=== PATIENT | male | born 1975 | race Caucasian/White ===

== ENCOUNTER → 2019-04-09 12:20 | Outpatient (CLI) | payer OTHER, SELFPAY ==
--- NOTE | 2019-04-09 13:11 | DI.MRI.S_ITS ---
PROCEDURE: MR KNEE RT WO CON INDICATIONS: Unspecified internal derangement of right knee TECHNIQUE: Noncontrast sagittal PD fast spin echo and T2 fast spin echo with fat saturation, sagittal 3-D FLASH with fat saturation; coronal T1 spin echo and PD fast spin echo with fat saturation, and axial PD fast spin echo with fat saturation through the knee. COMPARISON: None. FINDINGS: Image quality: Excellent. Menisci: Focal area of T2 hyperintense signal is seen involving articular surface of posterior horn medial meniscus suggestive of focal oblique tear in this area. There is no evidence of focal lateral meniscal tear. The meniscal root ligaments appear intact. Cruciate ligaments: The anterior and posterior cruciate ligaments appear intact. Medial structures: The medial collateral ligament appears intact. The posterior oblique ligament, semimembranosus tendon insertions, oblique popliteal ligament, and meniscocapsular junction appear intact. Visualized portions of the pes anserinus tendons appear normal. No abnormal bursal fluid. Lateral structures: The lateral collateral ligament, long and short heads of the biceps femoris tendon appear intact. The popliteus tendon appears normal; the popliteofibular ligament appears intact. The posterosuperior and anteroinferior popliteomeniscal fascicles appear intact. The arcuate and fabellofibular ligaments appear intact, on either side of the lateral inferior geniculate artery. Iliotibial band appears normal. Anterior structures: The quadriceps and patellar tendons appear intact. Patellar alignment is normal. No femoral trochlear dysplasia or ventral trochlear prominence. No edema in the infrapatellar fat pad. Bones and cartilage: No bone marrow contusions or fractures. The cartilage of the medial and lateral femorotibial compartments appears normal in thickness. 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 Underlying 3 mm osteochondral lesion is likely present in posterior patella. Joint space: There is small amount of joint fluid. No gross intra-articular loose body. No Duran's cyst. Normal appearing synovial plicae are incidentally noted. IMPRESSION: 1. Finding is suspicious for subtle focal oblique tear involving posterior horn of medial meniscus extending to the inferior articulating surface. No evidence of focal lateral meniscal tear. 2. Cruciate ligaments are intact. 3. Chondromalacia and suggestion of underlying tiny 3 mm osteochondral lesion involving medial facet and apex of the patella. Dictated by: Ignacio Solo M.D. on 04/09/2019 at 14:57 Approved by: Ignacio Solo M.D. on 04/09/2019 at 15:07
== END ==
PROVIDERS: PCP Family Medicine; Visit Provider Family Medicine
DX: M23.91 Unspecified internal derangement of right knee (principal); M22.41 Chondromalacia patellae, right knee
CPT/HCPCS: 73721

== ENCOUNTER → 2020-09-01 11:51 | Outpatient (CLI) | payer OTHER, SELFPAY ==
[2020-09-01 21:09] LABS: COVID19 - ORCAS (NP or Nasal) Negative (Negative)
== END ==
PROVIDERS: PCP Family Medicine; Visit Provider Physician Assistant Medical
DX: Z20.822 Contact with and (suspected) exposure to COVID-19 (principal)
CPT/HCPCS: U0003

== ENCOUNTER 2023-08-28 18:48 | Emergency (ER) | payer OTHER, SELFPAY ==
[2023-08-28 18:56] VITALS: BP 162/99; PULSE 78; RESP 18; TEMP 36.6; O2SAT 98; BMI 22.2
--- NOTE | 2023-08-28 19:00 | DI.RAD.S_ITS ---
PROCEDURE: XR FINGER LT MIN 2V INDICATIONS: laceration TECHNIQUE: PA hand, 2 views of the index finger acquired. COMPARISON: [facility], CR, FINGER RT, 04/23/2015, 15:34. [facility], CR, FINGER RT, 02/11/2015, 14:55. FINDINGS: Bones: No acute fractures or dislocations. No suspicious bony lesions. Soft tissues: No suspicious soft tissue calcifications. Soft tissue edema and skin irregularity are seen in the distal index finger. No radiopaque foreign body. IMPRESSION: Laceration at the distal index finger with associated soft tissue swelling. No acute osseous abnormality. No radiopaque foreign body Approved by: Brayden Maza M.D. on 08/28/2023 at 20:33
--- NOTE | 2023-08-28 19:24 | ED_ITS ---
HPI - Wound/Laceration General Chief Complaint: Wound/Laceration Stated Complaint: took chunk out of finger Time Seen by Provider: 08/28/23 19:00 Source: patient Mode of arrival: Ambulatory History of Present Illness HPI narrative: 48-year-old male presents for left index finger injury. Patient was working with a heavy tool for carpentry that accidentally fell on his index finger. He went to the walk-in clinic who referred him to the ER for evaluation. Patient states that he was up-to-date on his tetanus vaccinations. Reports significant pain in his index finger. Related Data Home Medications Medication Instructions Recorded Confirmed No Known Home Medications 08/28/23 08/28/23 Allergies Allergy/AdvReac Type Severity Reaction Status Date / Time Penicillins Allergy Unknown Verified 08/28/23 18:59 amoxicillin AdvReac Mild NAUSEA AND Verified 08/28/23 18:59 VOMITING: GI PAIN/DIARRHEA Review of Systems Review of Systems Narrative: See HPI Patient History Medical History Laceration of eyebrow, right Acute bronchiolitis, unspecified Social History Smoking Status: Smoker, status unknown Smoking Status: Smoker, status unknown alcohol intake frequency: 0-2 drinks per day Substance Use Type: does not use Exam Initial Vital Signs Initial Vital Signs: Vital Signs Temperature 97.8 F 08/28/23 18:56 Pulse Rate 78 08/28/23 18:56 Respiratory Rate 18 08/28/23 18:56 Blood Pressure 162/99 H 08/28/23 18:56 Pulse Oximetry 98 08/28/23 18:56 Oxygen Delivery Method Room Air 08/28/23 18:56 Const: Awake, alert, uncomfortable, in pain MSK: Bleeding L index finger. Full ROM, capillary refill <2 seconds Skin: Warm, Dry, 2 x 1 cm laceration/absent strip of skin left index finger at DIP joint Neuro: AO x3, CN II-XII grossly intact, moves all extremities Procedures Nerve Block Nerve Block 1: Time out performed: Yes Local Anesthetic: lidocaine 1% Amount of anesthesia used (mL): 4 Side: left Nerve Blocks: digital Procedure Successful: Yes Patient Tolerated Procedure: Well and No complications Complications: none Course Orders Ordered: Discontinued Medications Hydrocodone Bitart/Acetaminophen (Hydrocodone/Acet 5/325 Prepack) 1 bottle MISC DIRECTED ONE Stop: 08/28/23 21:58 Last Admin: 08/28/23 22:04 Dose: 1 bottle Documented By: PHI Diphtheria/Tetanus/Acell Pertussis (Tet,Diph,Pertuss(Acell),Vac/Pf 0.5 Ml Syringe) 0.5 ml IM .ONCE ONE Stop: 08/28/23 19:18 Last Admin: 08/28/23 19:58 Dose: Not Given Documented By: LEONILA Lidocaine/Epinephrine (Lidocaine 2% W/Epi Inj 10 Ml Vial) 10 ml INJ INTRA-OP ONE Stop: 08/28/23 21:10 Last Admin: 08/28/23 21:28 Dose: 10 ml Documented By: PHI Oxycodone/Acetaminophen (Oxycodone/Acetaminophen 5/325 Tablet) 1 tab PO NOW ONE Stop: 08/28/23 20:45 Last Admin: 08/28/23 20:47 Dose: 1 tab Documented By: PHI Vital Signs Vital signs: Vital Signs - 8 hr 08/28/23 18:56 Temperature 97.8 F Pulse Rate 78 Respiratory Rate 18 Blood Pressure 162/99 H Pulse Oximetry 98 Oxygen Delivery Method Room Air MDM - Wound/Laceration Differential Diagnosis Differential diagnosis: Likely laceration, abscess and abrasion Imaging Data Extremity x-ray #1: Radiologist's Impression: PROCEDURE: XR FINGER LT MIN 2V INDICATIONS: laceration TECHNIQUE: PA hand, 2 views of the index finger acquired. [facility] 15[facility]34. [facility], CR, FINGER RT, 02/11/2015, 14:55. FINDINGS: Bones: No acute fractures or dislocations. No suspicious bony lesions. Soft tissues: No suspicious soft tissue calcifications. Soft tissue edema and skin irregularity are seen in the distal index finger. No radiopaque foreign body. IMPRESSION: Laceration at the distal index finger with associated soft tissue swelling. No acute osseous abnormality. No radiopaque foreign body Approved by: Brayden Maza M.D. on 08/28/2023 at 20:33 MDM Narrative Medical decision making narrative: Accidental finger injury. Based on the location and width of the laceration over distal joint crease the wound is a poor candidate for sutures, as closure of the wound with leave the index finger in a flexed state. Digital block was performed with improvement in pain. Wound was copiously irrigated with saline. Patient is up-to-date on his tetanus shot. Hemostasis achieved by placing gauze soaked in lidocaine with epinephrine to the laceration bed. Afterwards xeroform gauze applied and finger splinted in extension. A prepack of pain medication sent with the patient for pain control overnight. Infection precautions discussed with the patient at bedside prior to departure. Discharge Plan Departure Patient Disposition: Home Clinical Impression: Accidental injury due to hand tool Instructions: DI for Minor Laceration Activity Restrictions/Additional Instructions: Based on the location of the cut sutures were deferred so that your finger does not heal in a flexed position. Change your dressing daily. Keep the wound clean and dry. If you notice redness, drainage, excessive swelling please return for evaluation. Elevating your hand above heart level we will help to decrease swelling. You may also take 400 mg of Tylenol and 1000 mg of ibuprofen every 6 hours for pain. Please do not take anymore than 4000 mg of Tylenol daily. Prescriptions: No Action No Known Home Medications Referrals: Mary Cabrera PA-C [Primary Care Provider] - Stand Alone Forms: Patient Portal/API, Work Release Note
[2023-08-28] MEDS: OXYCODONE/ACETAMINOPHEN 5/325 TABLET 1 TAB PO (20:47)
[2023-08-28] MEDS: LIDOCAINE 2% W/EPI INJ 10 ML VIAL INJ (21:28)
[2023-08-28] MEDS: HYDROCODONE/ACET 5/325 PREPACK 1 BOTTLE MISC (22:04)
--- NOTE | 2023-08-28 22:05 | PC.NURSE ---
pt's hand soaked in NS then gauze with lido with epi applied until bleeding stopped, xerform guaze applied with 4x4 and aluminum splint applied and wrapped with sonido
[2023-08-28 22:07] VITALS: BP 158/84; PULSE 64; RESP 18; O2SAT 96
== END 2023-08-28 22:09 | disposition home or self-care (01) ==
PROVIDERS: Emergency Provider Emergency Medicine; PCP Physician Assistant
DX: S61.211A Laceration without foreign body of left index finger without damage to nail, initial encounter (principal); W20.8XXA Other cause of strike by thrown, projected or falling object, initial encounter; Y93.89 Activity, other specified; Y99.0 Civilian activity done for income or pay
CPT/HCPCS: 64450; 73140; 99283